=== PATIENT | female | born 1990 | race Caucasian/White ===

== ENCOUNTER 2022-10-22 18:20 | Emergency (ER) | payer OTHER ==
[2022-10-22 18:30] VITALS: BP 117/65; PULSE 67; RESP 17; TEMP 97.8; BMI 30.8
[2022-10-22] MEDS ORDERED: ACETAMINOPHEN 1000 MG/100 ML BAG IVPB ONE (20:14)
[2022-10-22] MEDS ORDERED: ACETAMINOPHEN INJECTION 100 ML IVPB ONE (20:19)
[2022-10-22 21:22] LABS: PH,URINE 5.5 (5.0-8.0); URINE APPEARANCE CLEAR; URINE BILIRUBIN NEGATIVE (NEGATIVE); URINE COLOR YELLOW; URINE GLUCOSE (UA) NEGATIVE (NEGATIVE); URINE KETONE NEGATIVE (NEGATIVE); URINE LEUK ESTERASE NEGATIVE (NEGATIVE); URINE NITRITE NEGATIVE (NEGATIVE); URINE PROTEIN NEGATIVE (NEGATIVE); URINE UROBILINOGEN 0.2 mg/dL (0.2-1.0)
[2022-10-22 21:34] LABS: ALBUMIN 3.8 g/dl (3.4-5.0); BLOOD UREA NITROGEN 13.3 mg/dL (7-18); CALCIUM 8.3 mg/dL (8.5-10.1)
[2022-10-22 21:37] LABS: CREATININE 0.6 mg/dL (0.55-1.3)
[2022-10-22 21:39] LABS: BILIRUBIN,TOTAL 0.3 mg/dL (0.2-1); TOT PROT 7.4 g/dl (6.4-8.2)
[2022-10-22 21:47] LABS: BASO % 1.1 % (0-2.0); EOS % 1.8 % (0-4.5); HEMOGLOBIN 12.3 GM/dL (10.7-15.3); LYMPH % 35.4 % (8-40); MCH 26.5 pg (25.7-33.7); MCHC 32.4 g/dl (32.0-36.0); MEAN CELL VOLUME 81.9 fl (80-96); MEAN PLT VOLUME 8.4 fl (7.5-11.1); MONO % 10.3 % (3.8-10.2); NEUT % 51.4 % (42.8-82.8); PLATELET COUNT 321 10^3/uL (134-434); RBC 4.64 M/mm3 (3.60-5.2); RDW 13.1 % (11.6-15.6); WHITE BLOOD COUNT 8.4 K/mm3 (4.0-10.0)
[2022-10-22 22:09] LABS: HCG,QUALITATIVE URINE Positive
== END 2022-10-22 23:57 | disposition home or self-care (01) ==
LOC: JER 18:20
PROC: 3E0333Z Introduction of Anti-inflammatory into Peripheral Vein, Percutaneous Approach (ICD-10-PCS; principal; 2022-10-22)
DX: O26.891 Other specified pregnancy related conditions, first trimester (principal); R10.32 Left lower quadrant pain; Z3A.01 Less than 8 weeks gestation of pregnancy
CPT/HCPCS: 36415; 76817-TC; 80053; 81003; 84702; 84703; 85025; 86850; 86900; 86901; 87086; 99284-25

== ENCOUNTER 2022-10-25 10:36 | Emergency (ER) | payer OTHER ==
[2022-10-25 10:43] VITALS: BP 103/67; PULSE 63; RESP 18; TEMP 98.3; BMI 30.2
[2022-10-25 11:47] LABS: BASO % 0.8 % (0-2.0); EOS % 1.3 % (0-4.5); HEMATOCRIT 36.5 % (32.4-45.2); HEMOGLOBIN 11.9 GM/dL (10.7-15.3); LYMPH % 26.1 % (8-40); MCH 26.7 pg (25.7-33.7); MCHC 32.6 g/dl (32.0-36.0); MEAN CELL VOLUME 81.9 fl (80-96); MEAN PLT VOLUME 8.2 fl (7.5-11.1); MONO % 10.3 % (3.8-10.2); NEUT % 61.5 % (42.8-82.8); PLATELET COUNT 296 10^3/uL (134-434); RBC 4.45 M/mm3 (3.60-5.2); RDW 13.4 % (11.6-15.6); WHITE BLOOD COUNT 8.1 K/mm3 (4.0-10.0)
[2022-10-25 11:57] LABS: EPI CELLS 2 /uL (0-25.1); HYALINE CASTS 0 /uL (0-3.1); PH,URINE 6.5 (5.0-8.0); URINE APPEARANCE CLEAR; URINE BACTERIA 24 /uL (0-1359); URINE BILIRUBIN NEGATIVE (NEGATIVE); URINE COLOR YELLOW; URINE GLUCOSE (UA) NEGATIVE (NEGATIVE); URINE KETONE NEGATIVE (NEGATIVE); URINE LEUK ESTERASE NEGATIVE (NEGATIVE); URINE NITRITE NEGATIVE (NEGATIVE); URINE PROTEIN NEGATIVE (NEGATIVE); URINE RBC 9 /uL (0-23.9); URINE UROBILINOGEN 0.2 mg/dL (0.2-1.0); URINE WBC 1 /uL (0-25.8)
[2022-10-25 12:25] LABS: BLOOD UREA NITROGEN 13.2 mg/dL (7-18); CALCIUM 8.7 mg/dL (8.5-10.1)
[2022-10-25 12:26] LABS: ALBUMIN 3.6 g/dl (3.4-5.0)
[2022-10-25 12:28] LABS: CREATININE 0.6 mg/dL (0.55-1.3)
[2022-10-25 12:29] LABS: BILIRUBIN,TOTAL 0.3 mg/dL (0.2-1)
== END 2022-10-25 14:23 | disposition home or self-care (01) ==
LOC: JERFT 10:36 → JER 10:36 → JERFT 14:23
DX: O20.9 Hemorrhage in early pregnancy, unspecified (principal); Z3A.01 Less than 8 weeks gestation of pregnancy
CPT/HCPCS: 36415; 76817-TC; 80053; 81003; 84702; 85025; 86850; 86900; 86901; 99284-25

== ENCOUNTER 2023-05-27 20:33 | Inpatient (IN) | payer OTHER ==
[2023-05-27] MEDS ORDERED: AMPICILLIN SODIUM 2 GM VIAL ONE (23:44)
[2023-05-27] MEDS: ELECTROLYTE-148 SOLN 1,000 ML IV SCH (23:45)
[2023-05-28] MEDS ORDERED: AMPICILLIN - 2 GM in SODIUM CHLORIDE 100 ML IVPB ONE
[2023-05-28 00:32] LABS: BASO % 0.5 % (0-2.0); EOS % 1.5 % (0-4.5); HEMATOCRIT 34.4 % (32.4-45.2); HEMOGLOBIN 11.8 GM/dL (10.7-15.3); LYMPH % 23.4 % (8-40); MCH 27.7 pg (25.7-33.7); MCHC 34.1 g/dl (32.0-36.0); MEAN CELL VOLUME 81.1 fl (80-96); MEAN PLT VOLUME 9.8 fl (7.5-11.1); MONO % 9.6 % (3.8-10.2); PLATELET COUNT 183 10^3/uL (134-434); RBC 4.25 M/mm3 (3.60-5.2); WHITE BLOOD COUNT 10.3 K/mm3 (4.0-10.0)
[2023-05-28 00:42] LABS: INR 0.97 (0.83-1.09); PROTHROMBIN TIME (PATIENT) 11.2 SEC (9.7-13.0)
[2023-05-28 00:45] LABS: ACTIVATED PTT 24.9 SECONDS (25.2-36.5)
[2023-05-28 00:59] VITALS: BMI 33.1
[2023-05-28 00:59] LABS: POTASSIUM 3.8 mmol/L (3.5-5.1)
[2023-05-28 01:00] LABS: CALCIUM 8.6 mg/dL (8.5-10.1)
[2023-05-28 01:04] LABS: CREATININE 0.4 mg/dL (0.55-1.3)
[2023-05-28 01:58] LABS: HIV INTERPRETATION NEGATIVE (NEGATIVE)
[2023-05-28] MEDS ORDERED: AMPICILLIN SODIUM 1 GM VIAL ONE ×4 (04:13→16:06)
[2023-05-28] MEDS: ELECTROLYTE-148 SOLN 1,000 ML IV SCH ×3 (04:15→18:15)
[2023-05-28] MEDS: AMPICILLIN - 1 GM in SODIUM CHLORIDE 100 ML IVPB SCH ×5 (04:15→20:00)
[2023-05-28] MEDS ORDERED: FENTANYL/BUPIVACAINE/NS/PF - PCEA - 50 ML DISP.SYRIN EP ONE ×3 (07:25→19:07)
[2023-05-28] MEDS ORDERED: LIDO 2%/EPI 1:200000 PRESRVFRE (20 ML SDVIAL) ONE (08:11)
[2023-05-28] MEDS ORDERED: BUPIVACAINE HCL/PF 0.25% (2.5MG/ML) 10 ML VIAL ONE ×3 (08:11→17:33)
[2023-05-28] MEDS: FENTANYL/BUPIVACAINE/NS/PF - PCEA - 50 ML DISP.SYRIN EP SCH ×4 (08:30→19:10)
[2023-05-28] MEDS ORDERED: NALOXONE HCL 0.4 MG/ML VIAL IVPUSH PRN (08:36)
[2023-05-28] MEDS ORDERED: OXYTOCIN 30 UNITS in 0.9% NS 30 UNIT/500 ML INFUS.BAG IVPB ONE (09:25)
[2023-05-28] MEDS ORDERED: OXYTOCIN 30 UNITS in 0.9% NS 30 UNIT/500 ML INFUS.BAG IVPB SCH (09:30)
[2023-05-28] MEDS ORDERED: OXYTOCIN 20 UNITS in 0.9% NS 20 UNIT/1,000 ML INFUS.BAG IV ONE (19:31)
[2023-05-28 21:24] LABS: CORD BASE EXCESS -11.4 mmol/L (0-2); CORD HCO3 18.2 mmHg (20-29); CORD PCO2 55.5 mmHg (30-78); CORD pH 7.134 (7.14-7.44)
[2023-05-28 21:25] LABS: CORD BASE EXCESS -6.9 mmol/L (0-2); CORD HCO3 18.4 mmHg (20-29); CORD PCO2 36.7 mmHg (30-78); CORD pH 7.318 (7.14-7.44)
[2023-05-28] MEDS ORDERED: ACETAMINOPHEN 325 MG TABLET (FP) PO PRN (21:37)
[2023-05-28] MEDS ORDERED: WITCH HAZEL 50% (TUCKS) 40 PAD/JAR PAD TP PRN (21:37)
[2023-05-28] MEDS ORDERED: BISACODYL 10 MG SUPP.RECT RC PRN (21:37)
[2023-05-28] MEDS ORDERED: BENZOCAINE 28 GM HEMORRHOIDAL OINTMENT TP PRN (21:37)
[2023-05-28] MEDS ORDERED: BENZOCAINE 20% 57 GM BOTTLE TP PRN (21:37)
[2023-05-28] MEDS ORDERED: oxyCODONE HCL 5 MG TABLET PO PRN (21:37)
[2023-05-28] MEDS ORDERED: METHYLERGONOVINE MALEATE 0.2 MG/1 ML AMP IM PRN (21:37)
[2023-05-28] MEDS ORDERED: OXYTOCIN 20 UNITS in 0.9% NS 20 UNIT/1,000 ML INFUS.BAG IV SCH (21:45)
[2023-05-28] MEDS ORDERED: ACETAMINOPHEN 325 MG TABLET (FP) ONE (22:26)
[2023-05-29 08:44] LABS: BASO % 0.4 % (0-2.0); EOS % 0.7 % (0-4.5); HEMATOCRIT 34.4 % (32.4-45.2); HEMOGLOBIN 11.4 GM/dL (10.7-15.3); LYMPH % 12.5 % (8-40); MCH 27.4 pg (25.7-33.7); MCHC 33.2 g/dl (32.0-36.0); MEAN CELL VOLUME 82.3 fl (80-96); MONO % 9.5 % (3.8-10.2); NEUT % 76.9 % (42.8-82.8); PLATELET COUNT 185 10^3/uL (134-434); RBC 4.18 M/mm3 (3.60-5.2); RDW 13.9 % (11.6-15.6); WHITE BLOOD COUNT 14.6 K/mm3 (4.0-10.0)
[2023-05-29] MEDS: IBUPROFEN 600 MG TABLET (FP) PO PRN ×2 (10:08→19:46)
[2023-05-29 14:29] VITALS: RESP 18
[2023-05-29] MEDS ORDERED: SENNOSIDES/DOCUSATE COMBO (SENNA PLUS) TABLET (UD) PO PRN (22:00)
[2023-05-30] MEDS: IBUPROFEN 600 MG TABLET (FP) PO PRN ×2 (06:15→13:17)
[2023-05-30 09:02] VITALS: BP 123/72; PULSE 65; TEMP 98.3
== END 2023-05-30 14:35 | disposition home or self-care (01) | DRG 560 ==
LOC: JDEL 20:33 → JLDR 23:00 → J3W 05-28 23:08
PROVIDERS: ADMIT Specialist; ATTEND Specialist
PROC: 10E0XZZ Delivery of Products of Conception, External Approach (ICD-10-PCS; principal; 2023-05-27)
PROC: 3E033VJ Introduction of Other Hormone into Peripheral Vein, Percutaneous Approach (ICD-10-PCS; 2023-05-27)
DX: O42.013 Preterm premature rupture of membranes, onset of labor within 24 hours of rupture, third trimester (principal); O69.81X0 Labor and delivery complicated by cord around neck, without compression, not applicable or unspecified; Z3A.35 35 weeks gestation of pregnancy; Z37.0 Single live birth
CPT/HCPCS: 36415; 36600; 80048; 82803; 85025; 85610; 85730; 86780; 86850; 86900; 86901; 87389